=== PATIENT | female | born 1930 | race Caucasian/White ===

== ENCOUNTER 2018-08-11 16:29 | Emergency (ER) | payer MEDICARE ==
[2018-08-11] MEDS ORDERED: TETANUS/DIPHTHERIA TOXOID [ADULT] 0.5 ML VIAL IM ONE (16:44)
[2018-08-11 17:06] LABS: BASOPHILS % (AUTO) 0.5 % (0.0-5.0); EOSINOPHILS % (AUTO) 2.7 % (0.0-8.0); HEMATOCRIT 41.9 % (36-48); LYMPHOCYTES % (AUTO) 37.7 % (21.0-51.0); MEAN CORPUSCULAR HEMOGLOBIN 32.4 pg (27.0-33.0); MEAN CORPUSCULAR HGB CONC 32.6 g/dL (32.0-36.0); MEAN CORPUSCULAR VOLUME 99.3 fL (79-99); MONOCYTES % (AUTO) 12.5 % (3.0-13.0); NEUTROPHILS % (AUTO) 46.6 % (40.0-77.0); NUCLEATED RED BLOOD CELLS 0.1 % (0.0-0.19); PLATELET COUNT (AUTO) 131 K/uL (130-400); RED BLOOD CELL COUNT(AUTO) 4.22 MIL/uL (4.00-5.50); RED CELL DISTRIBUTION WIDTH 14.5 % (11.0-15.5); WHITE BLOOD COUNT (AUTO) 4.7 K/uL (4.8-10.8)
[2018-08-11 17:20] LABS: CREATININE 1.1 mg/dL (0.5-1.5); INR 1.3 (0.85-1.15); PARTIAL THROMBOPLASTIN TIME 29.9 SEC (26.3-35.5); POTASSIUM 4.2 mmol/L (3.5-5.1); PROTHROMBIN TIME 13.6 SEC (9.6-11.6)
== END 2018-08-11 19:17 | disposition home or self-care (01) ==
LOC: EDH 16:29
DX: S80.212A Abrasion, left knee, initial encounter (principal); S50.812A Abrasion of left forearm, initial encounter; G93.89 Other specified disorders of brain; I10 Essential (primary) hypertension; E78.5 Hyperlipidemia, unspecified; Z95.1 Presence of aortocoronary bypass graft; Z86.73 Personal history of transient ischemic attack (TIA), and cerebral infarction without residual deficits; W18.39XA Other fall on same level, initial encounter; Y93.01 Activity, walking, marching and hiking; Y92.481 Parking lot as the place of occurrence of the external cause; Y99.8 Other external cause status
CPT/HCPCS: 36415; 70450; 73562; 80048; 85025; 85610; 85730; 90471; 90714

== ENCOUNTER → 2018-08-11 | Outpatient (CLI) | payer MEDICARE ==
[~2018-08-11] MED LIST: CALC600T12 PO; CARV25TA PO; CHOL100040 PO; FENO145T37 PO; FURO40TA7 PO; GABA-531 PO; KRIL1CAP19 PO; LEVO50TA11 PO; LOSA1TAB42 PO; NIAC500C3 PO; ROSU40 PO; SPIR25TA PO; WARF3TAB29 PO
== END | disposition home or self-care (01) ==
LOC: RAH 15:34
PROVIDERS: ATTEND Internal Medicine Cardiovascular Disease
DX: Z04.3 Encounter for examination and observation following other accident (principal); W19.XXXA Unspecified fall, initial encounter; Y93.89 Activity, other specified; Y92.89 Other specified places as the place of occurrence of the external cause; Y99.8 Other external cause status
CPT/HCPCS: 70450

== ENCOUNTER → 2020-06-30 | Outpatient (CLI) | payer MEDICARE ==
[~2020-06-30] VITALS: Ht 170.2 cm; Wt 88.5 kg
[~2020-06-30] MED LIST changes: -CALC600T12 PO; +CALC600T15 PO; +FENO145T26 PO; -FENO145T37 PO; +PHARMACY COMMUNICATION MISC SCH; +RIVA15TA PO; +SODIUM CHLORIDE 0.9% 500ML 500 ML IV SCH
[2020-06-30 14:02] LABS: BASOPHILS % (AUTO) 0.8 % (0.0-5.0); HEMATOCRIT 31.8 % (36-48); LYMPHOCYTES % (AUTO) 31.9 % (21.0-51.0); MEAN CORPUSCULAR HEMOGLOBIN 27.1 pg (27.0-33.0); MEAN CORPUSCULAR HGB CONC 29.9 g/dL (32.0-36.0); MEAN CORPUSCULAR VOLUME 90.6 fL (79-99); MONOCYTES % (AUTO) 11.2 % (3.0-13.0); NEUTROPHILS % (AUTO) 52.9 % (40.0-77.0); PLATELET COUNT (AUTO) 245 K/uL (130-400); RED BLOOD CELL COUNT(AUTO) 3.51 MIL/uL (4.00-5.50); RED CELL DISTRIBUTION WIDTH 15.1 % (11.0-15.5); WHITE BLOOD COUNT (AUTO) 5.3 K/uL (4.8-10.8)
[2020-06-30 14:14] LABS: INR 1.5 (0.85-1.15); PARTIAL THROMBOPLASTIN TIME 31.1 SEC (26.3-35.5)
[2020-06-30 14:22] LABS: POTASSIUM 4.4 mmol/L (3.5-5.1)
--- NOTE | 2020-07-03 09:38 | NUR ---
LABS ABNORMAL LABS REPORTED TO [facility] WITH DR. ALMANZA. SHE WILL INFORM HIM AND NOTIFY US IF ANY FURTHER ORDERS.
== END ==
LOC: DAH 10:00 → EDSTATUS 13:00
PROVIDERS: ATTEND Internal Medicine Cardiovascular Disease
DX: Z01.810 Encounter for preprocedural cardiovascular examination (principal); Z45.010 Encounter for checking and testing of cardiac pacemaker pulse generator [battery]; I42.0 Dilated cardiomyopathy; I12.9 Hypertensive chronic kidney disease with stage 1 through stage 4 chronic kidney disease, or unspecified chronic kidney disease; N18.30 Chronic kidney disease, stage 3 unspecified; Z88.8 Allergy status to other drugs, medicaments and biological substances; I25.10 Atherosclerotic heart disease of native coronary artery without angina pectoris; I48.21 Permanent atrial fibrillation; E78.5 Hyperlipidemia, unspecified; E03.9 Hypothyroidism, unspecified; Z79.899 Other long term (current) drug therapy; Z53.8 Procedure and treatment not carried out for other reasons; Z79.01 Long term (current) use of anticoagulants; Z86.73 Personal history of transient ischemic attack (TIA), and cerebral infarction without residual deficits; Z82.49 Family history of ischemic heart disease and other diseases of the circulatory system; Z98.890 Other specified postprocedural states
CPT/HCPCS: 36415; 80048; 85025; 85610; 85730

== ENCOUNTER 2020-09-18 08:15 | Day surgery (SDC) | payer MEDICARE ==
[2020-09-18] VITALS (22 sets, daily range): BP systolic 104–145; BP diastolic 46–97
[~2020-09-18 08:15] MED LIST changes: +0.9% NACL 500ML IV.SOLN 500 ML IV SCH; -CALC600T15 PO; -CHOL100040 PO; +DOCU-116 PO; +FAMO20TA8 PO; -FENO145T26 PO; +FURO20TA6 PO; -FURO40TA7 PO; -GABA-531 PO; +GABA300C PO; +HYDR-4153 PO; -KRIL1CAP19 PO; -LEVO50TA11 PO; +LEVO75CA5 PO; -LOSA1TAB42 PO; -NIAC500C3 PO; +OMEP20CA12 PO; +OXYB5TAB15 PO; -PHARMACY COMMUNICATION MISC SCH; +POTA-10 PO; -ROSU40 PO; -SODIUM CHLORIDE 0.9% 500ML 500 ML IV SCH; -SPIR25TA PO; +TRAZ-185 PO; -WARF3TAB29 PO
[2020-09-18] MEDS ORDERED: CEFAZOLIN SODIUM 1 GM VIAL ONE (09:27)
[2020-09-18] MEDS ORDERED: BUPIVACAINE/PF 0.25% 30ML VIAL IJ ONE (09:27)
[2020-09-18] MEDS ORDERED: MEPERIDINE-PF 25 MG/ML SYG ONE ×2 (09:28→10:19)
[2020-09-18] MEDS ORDERED: MIDAZOLAM HCL 1 MG/ML 2ML VIAL ONE ×2 (09:28→10:19)
[2020-09-18] MEDS ORDERED: LIDOCAINE HCL 1% MDV 50ML VIAL ONE (09:28)
[2020-09-18] MEDS ORDERED: 0.9%NACL 1000ML 1,000 ML IV ONE (09:53)
[2020-09-18 11:23] LABS: BASOPHILS % (AUTO) 1.1 % (0.0-5.0); EOSINOPHILS % (AUTO) 4.7 % (0.0-8.0); HEMATOCRIT 26.2 % (36-48); LYMPHOCYTES % (AUTO) 33.8 % (21.0-51.0); MEAN CORPUSCULAR HEMOGLOBIN 23.2 pg (27.0-33.0); MEAN CORPUSCULAR HGB CONC 28.6 g/dL (32.0-36.0); MEAN CORPUSCULAR VOLUME 81.1 fL (79-99); PLATELET COUNT (AUTO) 410 K/uL (130-400); RED BLOOD CELL COUNT(AUTO) 3.23 MIL/uL (4.00-5.50); RED CELL DISTRIBUTION WIDTH 15.3 % (11.0-15.5); WHITE BLOOD COUNT (AUTO) 4.7 K/uL (4.8-10.8)
[2020-09-18 11:26] LABS: CREATININE 0.9 mg/dL (0.5-1.5); POTASSIUM 3.9 mmol/L (3.5-5.1)
[2020-09-18 11:40] LABS: INR 1.06 (0.85-1.15); PROTHROMBIN TIME 11.5 SEC (9.6-11.6)
[2020-09-18] MEDS ORDERED: NALOXONE HCL 0.4 MG/1 ML ML ONE (14:09)
== END 2020-09-18 17:00 | disposition home or self-care (01) ==
LOC: DAH 08:15
PROVIDERS: ATTEND Internal Medicine Cardiovascular Disease
DX: Z45.010 Encounter for checking and testing of cardiac pacemaker pulse generator [battery] (principal); I48.21 Permanent atrial fibrillation; I12.9 Hypertensive chronic kidney disease with stage 1 through stage 4 chronic kidney disease, or unspecified chronic kidney disease; N18.30 Chronic kidney disease, stage 3 unspecified; I42.0 Dilated cardiomyopathy; E78.5 Hyperlipidemia, unspecified; E03.9 Hypothyroidism, unspecified; I25.10 Atherosclerotic heart disease of native coronary artery without angina pectoris; Z86.73 Personal history of transient ischemic attack (TIA), and cerebral infarction without residual deficits; Z82.49 Family history of ischemic heart disease and other diseases of the circulatory system; Z79.01 Long term (current) use of anticoagulants; Z79.899 Other long term (current) drug therapy; Z95.5 Presence of coronary angioplasty implant and graft
CPT/HCPCS: 33227; 36415; 80048; 85025; 85610; 85730; A4215; A4216; A4221; A4222; A4223 ×3; A4606; A4663; C1786; J0690; J2175 ×2; J2250 ×2; J2310; J3490 ×2; J7030; 99156; 99157